=== PATIENT | male | born 1980 | race African-American/Black ===

== ENCOUNTER 2017-08-09 01:36 | Emergency (ER) | payer OTHER ==
[~2017-08-09] VITALS: Ht 170.2 cm; Wt 81.7 kg
[2017-08-09 01:43] VITALS: BP 120/80
[2017-08-09] MEDS ORDERED: PREDNISONE 20 M20 MG PO (02:04)
[2017-08-09] MEDS ORDERED: AMOXICILLIN 50500 M1 PO (02:04)
== END 2017-08-09 02:18 | disposition home or self-care (01) ==
LOC: ER 01:36
DX: R59.1 Generalized enlarged lymph nodes (principal)

== ENCOUNTER 2020-07-15 10:50 | Emergency (ER) | payer BC ==
[~2020-07-15] VITALS: Ht 170.2 cm; Wt 71.7 kg
[~2020-07-15 10:50] MED LIST: AMOXICILLIN 50500 M1 PO; PREDNISONE 20 M20 MG PO
[2020-07-15] MEDS ORDERED: CYCLOBENZAPRINE5 MG PO (11:55)
[2020-07-15] MEDS ORDERED: LIDOCAINE PAIN1 EACH TRANSDERM (11:55)
[2020-07-15 14:30] VITALS: BP 138/87
== END 2020-07-15 14:46 | disposition home or self-care (01) ==
LOC: ER 10:50
DX: M62.838 Other muscle spasm (principal); M54.6 Pain in thoracic spine; J45.909 Unspecified asthma, uncomplicated; Z79.2 Long term (current) use of antibiotics; Z79.899 Other long term (current) drug therapy